=== PATIENT | female | born 1970 ===

== ENCOUNTER 2017-12-05 13:59 | Observation (INO) ==
--- NOTE | 2017-12-05 14:48 | ED ---
HPI General Chief Complaint: Overdose Stated Complaint: Psych Eval/VCSO Time Seen by Provider: 12/05/17 14:29 History of Present Illness HPI Narrative: Patient presents to the emergency department secondary to overdose. She states that she took an unknown amount of pills at approximately 1 hour prior to ER presentation. She advises that this was not intentional, but she has been having trouble sleeping secondary to depression and she does want to sleep. States in the past year her , she was diagnosed with thyroid cancer, and she lost her job. She denies SI, HI, or AV hallucinations. States she does have night terrors secondary to finding her in the bed date and she to give CPR. She reports nausea, shortness of breath, abdominal pain, intermittent chest pain at the present for months, but she denies lower extremity edema or vomiting. She took trazodone 50 mg, alprazolam 2 mg, and duloxetine 60 mg. Related Data Home Medications Medication Instructions Recorded Confirmed alprazolam 2 mg PO TID PRN 12/05/17 12/05/17 [id number]-mozzfielgxldv-atehzozm 1 tab PO Q4-6H PRN 12/05/17 12/05/17 [Excedrin Migraine] duloxetine 60 mg PO DAILY 12/05/17 12/05/17 trazodone 50 mg PO HS 12/05/17 12/05/17 Allergies Allergy/AdvReac Type Severity Reaction Status Date / Time Sulfa (Sulfonamide Allergy Hallucinati Verified 12/05/17 14:42 Antibiotics) ons Review of Systems ROS Unobtainable All other systems reviewed negative except as stated in HPI [facility] Medical History Medical History Anxiety (Acute) Depression (Acute) Kidney stone (Acute) Thyroid cancer (Acute) Social History Social History Substance History: No History of Abuse Second Hand Smoke Exposure: Yes Smoking Status: Current every day smoker Tobacco Type: Cigarettes How Often Do You Have a Drink Containing Alcohol: 2 to 4 times a month Recent Travel in [facility] within the Last 8 Weeks: No Recent Out of Country Travel within the Last 8 Weeks: No Immunization History Tetanus Immunization: <5 Years Hx Influenza Vaccine This Season: Yes Exam Narrative Exam Narrative: GENERAL: No acute distress. SKIN: Focused skin assessment warm/dry. HEAD: Atraumatic. Normocephalic. EYES: Pupils equal and round. No scleral icterus. No injection or drainage. ENT: No nasal bleeding or discharge. Mucous membranes pink and moist. NECK: Trachea midline. No JVD. CARDIOVASCULAR: Regular rate and rhythm. No murmur appreciated. RESPIRATORY: No accessory muscle use. Clear to auscultation. Breath sounds equal bilaterally. GASTROINTESTINAL: Abdomen soft, non-tender, nondistended. Hepatic and splenic margins not palpable. MUSCULOSKELETAL: No obvious deformities. No clubbing. No cyanosis. No edema. NEUROLOGICAL: Awake and alert. No obvious cranial nerve deficits. Motor grossly within normal limits. Normal speech. PSYCHIATRIC: Seems depressed. Course Initial Documented Vital Signs Temperature 98.2 F 12/05/17 14:27 Pulse Rate 81 12/05/17 14:27 Respiratory Rate 14 12/05/17 14:27 Blood Pressure 131/74 12/05/17 14:27 Pulse Oximetry 96 12/05/17 14:27 Last Documented Vital Signs Temperature 98.2 F 12/05/17 14:27 Pulse Rate 97 H 12/05/17 16:29 Respiratory Rate 14 12/05/17 16:29 Blood Pressure 98/58 L 12/05/17 16:29 Pulse Oximetry 98 12/05/17 16:29 Medical Decision Making MDM Narrative Medical decision making narrative: Patient presents to the emergency department secondary to overdose. She has been placed on a Dutta Act. Patient placed on electronic device monitor, continuous pulse ox, IV access obtained. Labs, poison control consult, and psychiatry screen ordered. The nurse counted the patient's medications and compared to when she got the field and the instruction she is missing 1 of trazodone, for the Loxitane, and 15 Xanax. Labs: Decreased TSH but normal free T4, decreased potassium, UA positive for blood and bacteria, and benzodiazepines. Poison Control: Get serial ecgs to check QT, monitor for 6 hrs when patient is at her baseline, if asymptomatic can d/c. Differential Diagnosis Differential Diagnosis: Drug overdose., site screen, poison control consult ordered. Lab Data Result diagrams: 12/05/17 15:00 12/05/17 15:00 Lab Results 12/05/17 12/05/17 12/05/17 Range/Units 15:00 15:00 15:00 WBC 8.7 (4.0-11.0) th/mm3 RBC 4.74 (4.00-5.30) mil/mm3 Hgb 14.7 (11.6-15.3) gm/dL Hct 43.7 (35.0-46.0) % MCV 92.3 (80.0-100.0) fL MCH 31.1 (27.0-34.0) pg MCHC 33.7 (32.0-36.0) % RDW 13.3 (11.6-17.2) % Plt Count 229 (150-450) th/mm3 MPV 9.5 (7.0-11.0) fL Prelim Diff (Auto) Slide review pending Neut % (Auto) 61.3 (16.0-70.0) % Lymph % (Auto) 29.1 (9.0-44.0) % Hyde % (Auto) 6.7 (0.0-8.0) % Eos % (Auto) 2.5 (0.0-4.0) % Baso % (Auto) 0.4 (0.0-2.0) % Neut # (Auto) 5.3 (1.8-7.7) th/mm3 Lymph # (Auto) 2.5 (1.0-4.8) th/mm3 Hyde # (Auto) 0.6 (0.0-0.9) th/mm3 Eos # (Auto) 0.2 (0.0-0.4) th/mm3 Baso # (Auto) 0.0 (0.0-0.2) th/mm3 WBC Differential . Diff Scan Auto diff confirmed Differential Comment . PT 10.3 (9.8-11.6) sec INR 1.0 Ratio APTT 24.3 (24.3-30.1) sec Sodium 145 (136-145) meq/L Potassium 3.4 L (3.5-5.1) meq/L Chloride 114 H (98-107) meq/L Carbon Dioxide 24.3 (21.0-32.0) meq/L Anion Gap 7 (5-15) meq/L BUN 15 (7-18) mg/dL Creatinine 0.58 (0.50-1.00) mg/dL Estimated GFR Greater than 89 (>89) mL/min Random Glucose 84 (74-106) mg/dL Calcium 7.7 L (8.5-10.1) mg/dL Total Bilirubin 0.4 (0.2-1.0) mg/dL AST 14 L (15-37) U/L ALT 35 (10-53) U/L Alkaline Phosphatase 65 (45-117) U/L Troponin I Less than 0.02 L (0.02-0.05) ng/mL Total Protein 6.4 (6.4-8.2) g/dL Albumin 3.3 L (3.4-5.0) g/dL TSH 0.067 L (0.358-3.740) uIU/mL Free T4 1.12 (0.76-1.46) ng/dL Urine Color (Yellw/Straw) Urine Clarity (Clear) Urine pH (5.0-8.5) Ur Specific [place] (1.002-1.035) Urine Protein (Neg-Trace) mg/dL Urine Glucose (UA) (Negative) mg/dL Urine Ketones (Negative) mg/dL Urine Occult Blood (Negative) Urine Nitrate (Negative) Urine Bilirubin (Negative) Urine Urobilinogen (Less than 2) mg/dL Ur Leukocyte Esterase (Negative) Urine RBC (0-3) /hpf Urine WBC (0-5) /hpf Ur Squamous Epith Cells (0-5) /hpf Urine Bacteria (None) /hpf Micro UA Comment Urine Culture Comments Salicylates (2.8-20.0) mg/dL Urine Opiates Screen (Neg) Acetaminophen Less than 2.0 L (10.0-30.0) mcg/mL Ur Barbiturates Screen (Neg) Ur Amphetamines Screen (Neg) U Benzodiazepines Scrn (Neg) Urine Cocaine Screen (Neg) U Cannabinoids Screen (Neg) Serum Alcohol Less than 3 (0-5) mg/dL 12/05/17 12/05/17 12/05/17 Range/Units 15:00 15:00 15:00 WBC (4.0-11.0) th/mm3 RBC (4.00-5.30) mil/mm3 Hgb (11.6-15.3) gm/dL Hct (35.0-46.0) % MCV (80.0-100.0) fL MCH (27.0-34.0) pg MCHC (32.0-36.0) % RDW (11.6-17.2) % Plt Count (150-450) th/mm3 MPV (7.0-11.0) fL Prelim Diff (Auto) Neut % (Auto) (16.0-70.0) % Lymph % (Auto) (9.0-44.0) % Hyde % (Auto) (0.0-8.0) % Eos % (Auto) (0.0-4.0) % Baso % (Auto) (0.0-2.0) % Neut # (Auto) (1.8-7.7) th/mm3 Lymph # (Auto) (1.0-4.8) th/mm3 Hyde # (Auto) (0.0-0.9) th/mm3 Eos # (Auto) (0.0-0.4) th/mm3 Baso # (Auto) (0.0-0.2) th/mm3 WBC Differential Diff Scan Differential Comment PT (9.8-11.6) sec INR Ratio APTT (24.3-30.1) sec Sodium (136-145) meq/L Potassium (3.5-5.1) meq/L Chloride (98-107) meq/L Carbon Dioxide (21.0-32.0) meq/L Anion Gap (5-15) meq/L BUN (7-18) mg/dL Creatinine (0.50-1.00) mg/dL Estimated GFR (>89) mL/min Random Glucose (74-106) mg/dL Calcium (8.5-10.1) mg/dL Total Bilirubin (0.2-1.0) mg/dL AST (15-37) U/L ALT (10-53) U/L Alkaline Phosphatase (45-117) U/L Troponin I (0.02-0.05) ng/mL Total Protein (6.4-8.2) g/dL Albumin (3.4-5.0) g/dL TSH Cancelled (0.358-3.740) uIU/mL Free T4 Cancelled (0.76-1.46) ng/dL Urine Color (Yellw/Straw) Urine Clarity (Clear) Urine pH (5.0-8.5) Ur Specific [place] (1.002-1.035) Urine Protein (Neg-Trace) mg/dL Urine Glucose (UA) (Negative) mg/dL Urine Ketones (Negative) mg/dL Urine Occult Blood (Negative) Urine Nitrate (Negative) Urine Bilirubin (Negative) Urine Urobilinogen (Less than 2) mg/dL Ur Leukocyte Esterase (Negative) Urine RBC (0-3) /hpf Urine WBC (0-5) /hpf Ur Squamous Epith Cells (0-5) /hpf Urine Bacteria (None) /hpf Micro UA Comment Urine Culture Comments Salicylates 3.4 (2.8-20.0) mg/dL Urine Opiates Screen (Neg) Acetaminophen (10.0-30.0) mcg/mL Ur Barbiturates Screen (Neg) Ur Amphetamines Screen (Neg) U Benzodiazepines Scrn (Neg) Urine Cocaine Screen (Neg) U Cannabinoids Screen (Neg) Serum Alcohol Cancelled (0-5) mg/dL 12/05/17 12/05/17 Range/Units 15:00 15:00 WBC (4.0-11.0) th/mm3 RBC (4.00-5.30) mil/mm3 Hgb (11.6-15.3) gm/dL Hct (35.0-46.0) % MCV (80.0-100.0) fL MCH (27.0-34.0) pg MCHC (32.0-36.0) % RDW (11.6-17.2) % Plt Count (150-450) th/mm3 MPV (7.0-11.0) fL Prelim Diff (Auto) Neut % (Auto) (16.0-70.0) % Lymph % (Auto) (9.0-44.0) % Hyde % (Auto) (0.0-8.0) % Eos % (Auto) (0.0-4.0) % Baso % (Auto) (0.0-2.0) % Neut # (Auto) (1.8-7.7) th/mm3 Lymph # (Auto) (1.0-4.8) th/mm3 Hyde # (Auto) (0.0-0.9) th/mm3 Eos # (Auto) (0.0-0.4) th/mm3 Baso # (Auto) (0.0-0.2) th/mm3 WBC Differential Diff Scan Differential Comment PT (9.8-11.6) sec INR Ratio APTT (24.3-30.1) sec Sodium (136-145) meq/L Potassium (3.5-5.1) meq/L Chloride (98-107) meq/L Carbon Dioxide (21.0-32.0) meq/L Anion Gap (5-15) meq/L BUN (7-18) mg/dL Creatinine (0.50-1.00) mg/dL Estimated GFR (>89) mL/min Random Glucose (74-106) mg/dL Calcium (8.5-10.1) mg/dL Total Bilirubin (0.2-1.0) mg/dL AST (15-37) U/L ALT (10-53) U/L Alkaline Phosphatase (45-117) U/L Troponin I (0.02-0.05) ng/mL Total Protein (6.4-8.2) g/dL Albumin (3.4-5.0) g/dL TSH (0.358-3.740) uIU/mL Free T4 (0.76-1.46) ng/dL Urine Color Straw (Yellw/Straw) Urine Clarity Clear (Clear) Urine pH 5.0 (5.0-8.5) Ur Specific [place] 1.004 (1.002-1.035) Urine Protein Negative (Neg-Trace) mg/dL Urine Glucose (UA) Negative (Negative) mg/dL Urine Ketones Negative (Negative) mg/dL Urine Occult Blood Small H (Negative) Urine Nitrate Negative (Negative) Urine Bilirubin Negative (Negative) Urine Urobilinogen Less than 2 (Less than 2) mg/dL Ur Leukocyte Esterase Negative (Negative) Urine RBC 1 (0-3) /hpf Urine WBC 3 (0-5) /hpf Ur Squamous Epith Cells <1 (0-5) /hpf Urine Bacteria Few H (None) /hpf Micro UA Comment Culture not ind Urine Culture Comments Culture not ind Salicylates (2.8-20.0) mg/dL Urine Opiates Screen Neg (Neg) Acetaminophen (10.0-30.0) mcg/mL Ur Barbiturates Screen Neg (Neg) Ur Amphetamines Screen Neg (Neg) U Benzodiazepines Scrn Pos H (Neg) Urine Cocaine Screen Neg (Neg) U Cannabinoids Screen Neg (Neg) Serum Alcohol (0-5) mg/dL ECG Data Attestation: I personally reviewed and interpreted this ECG as follows: (Sinus rhythm, rate 76, normal axis, QTC 425, normal intervals, T-wave inversion in V1 and V2) Discharge Plan Discharge Disposition Patient Disposition: 30 Still Patient Discharge Condition Condition: Stable Discharge Details Diagnosis: Drug overdose Physicians Team ED Provider: Ashley Frank Primary Care Provider: Primary Care Cristina Mcdonough Rxs /Orders / Referrals /Forms Prescriptions: No Action trazodone 50 mg Tablet 50 mg PO HS RF: 0 alprazolam 2 mg Tablet 2 mg PO TID PRN (Reason: Anxiety) RF: 0 lyzddsc-mnizxqzvrmxpd-aujvfepd [Excedrin Migraine] 250-250-65 mg Tablet 1 tab PO Q4-6H PRN (Reason: Headache) RF: 0 duloxetine 60 mg Capsule,Delayed Release(Dr/Ec) 60 mg PO DAILY RF: 0 Discharge Interventions Interventions: Vital Signs Last Done: 12/05/17 16:29 Status ED Status: With Doctor
[2017-12-05 15:15] LABS: Baso % (Auto) 0.4 % (0.0-2.0); Eos # (Auto) 0.2 th/mm3 (0.0-0.4); Eos % (Auto) 2.5 % (0.0-4.0); Hematocrit 43.7 % (35.0-46.0); Hemoglobin 14.7 gm/dL (11.6-15.3); Lymph # (Auto) 2.5 th/mm3 (1.0-4.8); Lymph % (Auto) 29.1 % (9.0-44.0); Mean Corpuscular HGB Conc 33.7 % (32.0-36.0); Mean Corpuscular Hemoglobin 31.1 pg (27.0-34.0); Mean Corpuscular Volume 92.3 fL (80.0-100.0); Mean Platelet Volume 9.5 fL (7.0-11.0); Mono # (Auto) 0.6 th/mm3 (0.0-0.9); Mono % (Auto) 6.7 % (0.0-8.0); Neut # (Auto) 5.3 th/mm3 (1.8-7.7); Neut % (Auto) 61.3 % (16.0-70.0); Platelet Count 229 th/mm3 (150-450); Red Blood Count 4.74 mil/mm3 (4.00-5.30); Red Cell Distribution Width 13.3 % (11.6-17.2); White Blood Count 8.7 th/mm3 (4.0-11.0)
[2017-12-05 15:28] LABS: Amphetamine Screen,Urine Neg (Neg); Barbiturate Screen,Urine Neg (Neg); Cannabinoid Screen,Urine Neg (Neg); Cocaine Screen,Urine Neg (Neg)
[2017-12-05 15:31] LABS: Bacteria,Urine Few /hpf; Bilirubin,Urine Negative (Negative); Clarity,Urine Clear (Clear); Color,Urine Straw (Yellw/Straw); Glucose,Urine (UA) Negative (Negative); Leukocyte Esterase,Urine Negative (Negative); Nitrite,Urine Negative (Negative); Opiate Screen,Urine Neg (Neg); Specific Gravity,Urine 1.004 (1.002-1.035); Squamous Epithelial Cell,Urine <1 /hpf (0-5)
[2017-12-05 15:35] LABS: Activated Partial Thrombo Time 24.3 sec (24.3-30.1); Prothrombin Time 10.3 sec (9.8-11.6)
[2017-12-05 15:41] VITALS: TEMP 98.2
[2017-12-05 15:47] LABS: Albumin 3.3 g/dL (3.4-5.0); Anion Gap 7 meq/L (5-15); Aspartate Aminotransferase 14 U/L (15-37); Blood Urea Nitrogen 15 mg/dL (7-18); Calcium 7.7 mg/dL (8.5-10.1); Carbon Dioxide 24.3 meq/L (21.0-32.0); Chloride 114 meq/L (98-107); Glomerular Filtration Rate Greater Than 89 mL/min (>89); Glucose,Random 84 mg/dL (74-106); Potassium 3.4 meq/L (3.5-5.1); Sodium 145 meq/L (136-145)
[2017-12-05 15:58] LABS: Alanine Aminotransferase 35 U/L (10-53); Alkaline Phosphatase 65 U/L (45-117); Free T4 (Free Thyroxine) 1.12 ng/dL (0.76-1.46); Thyroid Stimulating Hormone 0.067 uIU/mL (0.358-3.740); Total Protein 6.4 g/dL (6.4-8.2)
[2017-12-05] MEDS ORDERED: Bisacodyl 10 MG Supp RECTAL PRN (17:02)
--- NOTE | 2017-12-05 17:32 | P.HPIM ---
History of Present Illness Primary Care Physician: No Primary Care Physician History of Present Illness: 47-year-old female with a history of anxiety, depression, thyroid cancer status post thyroidectomy, who presents with what she reports as an unintentional drug overdose. She reports that she has been unable to sleep for several days, and today "in a moment of weakness," took a handful of pills. She reports feeling very tired. Denies any chest pain shortness of breath. Denies nausea or vomiting. Denies any recent fevers, chills. She previously went to [facility] several weeks ago with chest pain and ruled out. Denies any chest pain currently.. 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 By: Brewing Technician / EMT - Medical History Medical History: Medical History (Last Updated 12/05/17 @ 17:31 by Ab Rivero MD) Anxiety Depression H/O thyroidectomy Kidney stone Thyroid cancer - Surgical History Surgical History: Surgical History (Last Updated 12/05/17 @ 17:31 by Ab Rivero MD) H/O right knee surgery History of partial hysterectomy - Family History Family History: Family History (Last Updated 12/05/17 @ 17:31 by Ab Rivero MD) Father Heart valve disease Other Family history of prostate cancer in father Multiple sclerosis - Tobacco History Second Hand Smoke Exposure: Yes Tobacco Use In Past 30 Days: Yes Smoking Status: Current every day smoker Tobacco Type: Cigarettes - Alcohol History How Often Do You Have a Drink Containing Alcohol: 2 to 4 times a month - Substance Use History Substance History: No History of Abuse - Travel History Recent Travel in the [place] Within the Last 8 Weeks: No Recent Travel Out of the Country Within the Last 8 Weeks: No - Immunization History Tetanus Immunization: <5 Years Hx Influenza Vaccine This Season: Yes Medications and Allergies Active Medications: Active Medications Al Hydroxide/Mg Hydroxide (Milk Of Magnesia Liq) 30 ml PO Q12H PRN PRN Reason: Mild Constipation Bisacodyl (Dulcolax Supp) 10 mg RECTAL DAILY PRN PRN Reason: SEVERE CONSITIPATION Sodium Chloride (Ns Inj) 1,000 mls @ 100 mls/hr IV.CONT .Q10H ROBBIN Lactulose (Lactulose Liq) 30 ml PO DAILY PRN PRN Reason: SEVERE CONSITIPATION Senna/Docusate Sodium (Kristen-Colace) 1 tab PO BID ROBBIN Sennosides (Senokot) 17.2 mg PO Q12H PRN PRN Reason: Moderate Constipation Allergies Allergy/AdvReac Type Severity Reaction Status Date / Time Sulfa (Sulfonamide Allergy Hallucinati Verified 12/05/17 14:42 Antibiotics) ons Home Medications Medication Instructions Recorded Confirmed Type alprazolam 2 mg PO TID PRN 12/05/17 12/05/17 History bxnipuf-raezdoskjsqdd-dggpohwj 1 tab PO Q4-6H PRN 12/05/17 12/05/17 History [Excedrin Migraine] duloxetine 60 mg PO DAILY 12/05/17 12/05/17 History trazodone 50 mg PO HS 12/05/17 12/05/17 History Exam Vital signs: Vital Signs 12/05/17 14:27 12/05/17 15:15 12/05/17 16:25 Temperature 98.2 F Pulse Rate 81 73 76 Respiratory Rate 14 16 14 Blood Pressure 131/74 131/74 87/46 L Pulse Oximetry 96 100 96 12/05/17 16:29 12/05/17 17:11 Temperature Pulse Rate 97 H 84 Respiratory Rate 14 12 Blood Pressure 98/58 L 111/58 L Pulse Oximetry 98 99 Intake & Output 12/04/17 12/05/17 12/05/17 18:59 06:59 18:59 Weight 70.76 kg Narrative: GENERAL: Patient lying in bed sleeping. Wakes up for exam. Somnolent, but oriented 3. SKIN: Warm and dry. HEAD: Atraumatic. Normocephalic. EYES: Pupils equal and round. No scleral icterus. No injection or drainage. ENT: No nasal bleeding or discharge. Mucous membranes pink and moist. NECK: Trachea midline. No JVD. CARDIOVASCULAR: Regular rate and rhythm. RESPIRATORY: No accessory muscle use. Clear to auscultation. Breath sounds equal bilaterally. GASTROINTESTINAL: Abdomen soft, non-tender, nondistended. Hepatic and splenic margins not palpable. MUSCULOSKELETAL: Extremities without clubbing, cyanosis, or edema. No obvious deformities. NEUROLOGICAL: Awake and alert. No obvious cranial nerve deficits. Motor grossly within normal limits. Five out of 5 muscle strength in the arms and legs. Normal speech. PSYCHIATRIC: Appropriate mood and affect; insight and judgment normal. Results - Labs CBC & Chem 7: 12/05/17 15:00 12/05/17 15:00 Labs: Short CBC 12/05/17 Range/Units 15:00 WBC 8.7 (4.0-11.0) th/mm3 Hgb 14.7 (11.6-15.3) gm/dL Hct 43.7 (35.0-46.0) % Plt Count 229 (150-450) th/mm3 BMP 12/05/17 15:00 Sodium 145 Potassium 3.4 L Chloride 114 H Carbon Dioxide 24.3 BUN 15 Creatinine 0.58 Calcium 7.7 L Cardiac Enzymes 12/05/17 Range/Units 15:00 Troponin I Less than 0.02 L (0.02-0.05) ng/mL Liver Function 12/05/17 Range/Units 15:00 Total Bilirubin 0.4 (0.2-1.0) mg/dL AST 14 L (15-37) U/L ALT 35 (10-53) U/L Alkaline Phosphatase 65 (45-117) U/L Albumin 3.3 L (3.4-5.0) g/dL Urine 12/05/17 Range/Units 15:00 Urine Color Straw (Yellw/Straw) Urine Clarity Clear (Clear) Urine pH 5.0 (5.0-8.5) Ur Specific [place] 1.004 (1.002-1.035) Urine Protein Negative (Neg-Trace) mg/dL Urine Glucose (UA) Negative (Negative) mg/dL Caprini VTE Risk Assessment Caprini VTE Risk Assessment: No/Low Risk (score <= 1) Caprini Risk Assessment Model: Point Value = 1 Point Value = 2 Point Value = 3 Point Value = 5 Age 41-60 Minor surgery BMI > 25 kg/m2 Swollen legs Varicose veins or History of unexplained or recurrent spontaneous Oral contraceptives or hormone replacement Sepsis (< 1 month) Serious lung disease, including pneumonia (< 1 month) Abnormal pulmonary function Acute myocardial infarction Congestive heart failure (< 1 month) History of inflammatory bowel disease Medical patient at bed rest Age 61-74 Arthroscopic surgery Major open surgery (> 45 min) Laparoscopic surgery (> 45 min) Malignancy Confined to bed (> 72 hours) Immobilizing plaster cast Central venous access Age >= 75 History of VTE Family history of VTE Factor V Leiden Prothrombin [id number] Lupus anticoagulant Anticardiolipin antibodies Elevated serum homocysteine Heparin-induced thrombocytopenia Other congenital or acquired thrombophilia Stroke (< 1 month) Elective arthroplasty Hip, pelvis, or leg fracture Acute spinal cord injury (< 1 month) Prophylaxis Regimen: Total Risk Factor Score Risk Level Prophylaxis Regimen 0-1 Low Early ambulation 2 Moderate Order ONE of the following: *Sequential Compression Device (SCD) *Heparin 5000 units SQ BID 3-4 Higher Order ONE of the following medications: *Heparin 5000 units SQ TID *Enoxaparin/Lovenox 40 mg SQ daily (WT < 150 kg, CrCl > 30 mL/min) *Enoxaparin/Lovenox 30 mg SQ daily (WT < 150 kg, CrCl > 10-29 mL/min) *Enoxaparin/Lovenox 30 mg SQ BID (WT < 150 kg, CrCl > 30 mL/min) AND/OR *Sequential Compression Device (SCD) 5 or more Highest Order ONE of the following medications: *Heparin 5000 units SQ TID (Preferred with Epidurals) *Enoxaparin/Lovenox 40 mg SQ daily (WT < 150 kg, CrCl > 30 mL/min) *Enoxaparin/Lovenox 30 mg SQ daily (WT < 150 kg, CrCl > 10-29 mL/min) *Enoxaparin/Lovenox 30 mg SQ BID (WT < 150 kg, CrCl > 30 mL/min) AND *Sequential Compression Device (SCD) Assessment and Plan - Plan //Intentional overdose Anxiety Depression Patient says this was unintentional, however did say it was "in a moment weakness" EKG with no acute findings. Will trend. ED physician has discussed with poison control. Patient is Dutta acted. Consult psychiatry //Thyroid cancer status post resection //Hyperthyroid state -Patient states she is on triiodothyronine, as well as levothyroxine. -Due to decreased TSH, we will hold off on these medications for now. Given that she has not slept in 5 days, ended up overdosing on meds to try to sleep, probably can go on just T4 without the T3. Continue to monitor closely. -Follow with endocrinology as outpatient. //Tobacco abuse. Cessation counseling provided. //Hypokalemia. 3.4. Mild. Replace. Discussed Condition With: Patient, ED physician.
[2017-12-05] MEDS: Sod Chloride 0.9% Inj 1,000 ML IV.CONT SCH (17:56)
[2017-12-05] MEDS: Senna/Docusate Sodium 8.6/50 MG Tablet PO SCH (21:11)
[2017-12-06] MEDS: Sod Chloride 0.9% Inj 1,000 ML IV.CONT SCH ×2 (09:47→13:29)
[2017-12-06] MEDS: Senna/Docusate Sodium 8.6/50 MG Tablet PO SCH (09:52)
--- NOTE | 2017-12-06 09:55 | P.PN ---
Subjective Interval history: Follow up for overdose. The patient reports feeling back to herself, wants to go home. She denies any headache, lightheadedness, dizziness, chest pain, palpitations, or abdominal complaints. She denies any suicidal ideations. She states she took trazodone and Xanax in an attempt to go to sleep. She states she has been dealing with a lot of stressors at home. She has no other medical complaints at this time. Physical Exam Vital signs: Vital Signs 12/05/17 14:27 12/05/17 15:15 12/05/17 16:25 Temperature 98.2 F Pulse Rate 81 73 76 Respiratory Rate 14 16 14 Blood Pressure 131/74 131/74 87/46 L Pulse Oximetry 96 100 96 12/05/17 16:29 12/05/17 17:11 12/05/17 18:34 Temperature Pulse Rate 97 H 84 75 Respiratory Rate 14 12 16 Blood Pressure 98/58 L 111/58 L 115/68 Pulse Oximetry 98 99 100 12/05/17 20:00 12/06/17 00:00 12/06/17 03:27 Temperature 98.6 F 98.4 F 98.4 F Pulse Rate 79 67 72 Respiratory Rate 17 17 17 Blood Pressure 91/55 L 102/60 102/58 L Pulse Oximetry 95 95 95 12/06/17 08:00 Temperature 97.9 F Pulse Rate 81 Respiratory Rate 16 Blood Pressure 106/63 Pulse Oximetry 96 Intake & Output 12/05/17 12/06/17 12/06/17 18:59 06:59 18:59 Intake Total 1000 / 1000 Balance 1000 / 1000 Weight 70.76 kg Intake: IV 1000 / 1000 NS Inj 1,000 ML @ 100 mls/hr IV 1000 / 1000 .CONT .Q10H [facility] Rx#:[id number] Narrative: GENERAL: Well-nourished, well-developed middle-aged female patient in [facility]. SKIN: Warm and dry. No rash. HEENT: Normocephalic. Atraumatic. Pupils equal and round. Mucous membranes pink and moist. CARDIOVASCULAR: Regular rate and rhythm. No murmur appreciated. RESPIRATORY: No accessory muscle use. Clear to auscultation. Breath sounds equal bilaterally. GASTROINTESTINAL: Abdomen soft, non-tender, nondistended. Normoactive bowel sounds x4. MUSCULOSKELETAL: No obvious deformities. Extremities without clubbing, cyanosis , or edema. NEUROLOGICAL: Awake and alert. No obvious cranial nerve deficits. Motor grossly within normal limits. Moving all extremities spontaneously. Normal speech. PSYCHIATRIC: Appropriate mood and affect; insight and judgment normal. Results - Labs CBC & Chem 7: 12/05/17 15:00 12/05/17 15:00 Laboratory Results - last 24 hr 12/05/17 12/05/17 12/05/17 15:00 15:00 15:00 WBC 8.7 RBC 4.74 Hgb 14.7 Hct 43.7 MCV 92.3 MCH 31.1 MCHC 33.7 RDW 13.3 Plt Count 229 MPV 9.5 Prelim Diff (Auto) Slide review pending Neut % (Auto) 61.3 Lymph % (Auto) 29.1 [place] % (Auto) 6.7 Eos % (Auto) 2.5 Baso % (Auto) 0.4 Neut # (Auto) 5.3 Lymph # (Auto) 2.5 [place] # (Auto) 0.6 Eos # (Auto) 0.2 Baso # (Auto) 0.0 WBC Differential . Diff Scan Auto diff confirmed Differential Comment . PT 10.3 INR 1.0 APTT 24.3 Sodium 145 Potassium 3.4 L Chloride 114 H Carbon Dioxide 24.3 Anion Gap 7 BUN 15 Creatinine 0.58 Estimated GFR Greater than 89 Random Glucose 84 Calcium 7.7 L Total Bilirubin 0.4 AST 14 L ALT 35 Alkaline Phosphatase 65 Troponin I Less than 0.02 L Total Protein 6.4 Albumin 3.3 L TSH 0.067 L Free T4 1.12 Urine Color Urine Clarity Urine pH Ur Specific [place] Urine Protein Urine Glucose (UA) Urine Ketones Urine Occult Blood Urine Nitrate Urine Bilirubin Urine Urobilinogen Ur Leukocyte Esterase Urine RBC Urine WBC Ur Squamous Epith Cells Urine Bacteria Micro UA Comment Urine Culture Comments Salicylates Urine Opiates Screen Acetaminophen Less than 2.0 L Ur Barbiturates Screen Ur Amphetamines Screen U Benzodiazepines Scrn Urine Cocaine Screen U Cannabinoids Screen Serum Alcohol Less than 3 12/05/17 12/05/17 12/05/17 15:00 15:00 15:00 WBC RBC Hgb Hct MCV MCH MCHC RDW Plt Count MPV Prelim Diff (Auto) Neut % (Auto) Lymph % (Auto) [place] % (Auto) Eos % (Auto) Baso % (Auto) Neut # (Auto) Lymph # (Auto) [place] # (Auto) Eos # (Auto) Baso # (Auto) WBC Differential Diff Scan Differential Comment PT INR APTT Sodium Potassium Chloride Carbon Dioxide Anion Gap BUN Creatinine Estimated GFR Random Glucose Calcium Total Bilirubin AST ALT Alkaline Phosphatase Troponin I Total Protein Albumin TSH Cancelled Free T4 Cancelled Urine Color Urine Clarity Urine pH Ur Specific [place] Urine Protein Urine Glucose (UA) Urine Ketones Urine Occult Blood Urine Nitrate Urine Bilirubin Urine Urobilinogen Ur Leukocyte Esterase Urine RBC Urine WBC Ur Squamous Epith Cells Urine Bacteria Micro UA Comment Urine Culture Comments Salicylates 3.4 Urine Opiates Screen Acetaminophen Ur Barbiturates Screen Ur Amphetamines Screen U Benzodiazepines Scrn Urine Cocaine Screen U Cannabinoids Screen Serum Alcohol Cancelled 12/05/17 12/05/17 15:00 15:00 WBC RBC Hgb Hct MCV MCH MCHC RDW Plt Count MPV Prelim Diff (Auto) Neut % (Auto) Lymph % (Auto) [place] % (Auto) Eos % (Auto) Baso % (Auto) Neut # (Auto) Lymph # (Auto) [place] # (Auto) Eos # (Auto) Baso # (Auto) WBC Differential Diff Scan Differential Comment PT INR APTT Sodium Potassium Chloride Carbon Dioxide Anion Gap BUN Creatinine Estimated GFR Random Glucose Calcium Total Bilirubin AST ALT Alkaline Phosphatase Troponin I Total Protein Albumin TSH Free T4 Urine Color Straw Urine Clarity Clear Urine pH 5.0 Ur Specific [place] 1.004 Urine Protein Negative Urine Glucose (UA) Negative Urine Ketones Negative Urine Occult Blood Small H Urine Nitrate Negative Urine Bilirubin Negative Urine Urobilinogen Less than 2 Ur Leukocyte Esterase Negative Urine RBC 1 Urine WBC 3 Ur Squamous Epith Cells <1 Urine Bacteria Few H Micro UA Comment Culture not ind Urine Culture Comments Culture not ind Salicylates Urine Opiates Screen Neg Acetaminophen Ur Barbiturates Screen Neg Ur Amphetamines Screen Neg U Benzodiazepines Scrn Pos H Urine Cocaine Screen Neg U Cannabinoids Screen Neg Serum Alcohol Assessment and Plan - Plan 47-year-old female with a history of anxiety, depression, thyroid cancer status post thyroidectomy, who presents with what she reports as an unintentional drug overdose. Overdose: with hx of Anxiety/Depression. Unclear motivation of overdose, patient took handful of pills to "go to sleep" in a "moment of weakness". -Trended EKGs with no acute findings. -ED physician has discussed with poison control. Patient was Dutta acted in the ED. -Consulted psychiatry -Medically stable Thyroid cancer status post resection with Hyperthyroid state -Patient states she is on triiodothyronine, as well as levothyroxine. -Due to decreased TSH, held off on these medications; however patient very reluctant to change any medications at this time, states she follows with endocrinology office Dr. Vinson and Skyla Lester PA-C very closely, and she will follow up with them for any medication adjustments. -Follow with endocrinology as outpatient, patient verbalized understanding Tobacco abuse. Cessation counseling provided. Hypokalemia. 3.4. Mild. Replaced. Discharge Planning: Discharge pending psychiatry evaluation. The patient is medically stable for discharge. Discussed with Dr. Lei, recommends admission to inpatient psychiatry. Discharge patient to inpatient psychiatry unit Condition on discharge: Stable Regular Diet as tolerated Ad Luz Maria activity Rx written: no new meds Follow-up with primary care physician within 1 week
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
[2017-12-06] MEDS ORDERED: LEVOTHYROXINE 100 MCG PO SCH (15:00)
[2017-12-06 22:35] VITALS: BP 122/80; PULSE 76; RESP 16; O2SAT 100
--- NOTE | 2017-12-06 23:03 | ECG ---
Date Performed: 12/06/2017 Time Performed: 09:43:03 PTAGE: 47 years EKG: SINUS BRADYCARDIA MINIMAL ST ELEVATION IN INFERIOR LEADS, POSSIBLE EARLY REPOLARIZATION BOR DERLINE ECG PREVIOUS TRACING : 12/05/2017 17.51 Since the previous tracing, no significant change noted DOCTOR: Berto Lopez Interpretating Date/Time 12/06/2017 23:02:50
--- NOTE | 2017-12-06 23:29 | ECG ---
Date Performed: 12/05/2017 Time Performed: 17:51:35 PTAGE: 47 years EKG: Sinus rhythm POSSIBLE LEFT ATRIAL ENLARGEMENT BORDERLINE ECG INTERPRETATION BASED ON A DEFAULT AGE OF 39 YEARS PREVIOUS TRACING : 12/05/2017 14.55 Since the previous tracing, no significant change not ed DOCTOR: Berto Lopez Interpretating Date/Time 12/06/2017 23:27:55
--- NOTE | 2017-12-06 23:33 | ECG ---
Date Performed: 12/05/2017 Time Performed: 14:55:59 PTAGE: 47 years EKG: Sinus rhythm NORMAL ECG NO PREVIOUS TRACING DOCTOR: Berto Lopez Interpretating Date/Time 12/07/2017 06:44:05
== END 2017-12-06 18:32 ==
LOC: NEDA 13:59 → NEPFCDU 13:59 → NEPE 13:59 → NEPFCDU 18:40
PROVIDERS: ADMIT Hospitalist; ATTEND Hospitalist
DX: F32.9 Major depressive disorder, single episode, unspecified; F41.9 Anxiety disorder, unspecified; F51.4 Sleep terrors [night terrors]; F43.25 Adjustment disorder with mixed disturbance of emotions and conduct; F51.5 Nightmare disorder; T50.901A Poisoning by unspecified drugs, medicaments and biological substances, accidental (unintentional), initial encounter; F17.210 Nicotine dependence, cigarettes, uncomplicated; E89.0 Postprocedural hypothyroidism; E87.6 Hypokalemia; Z85.850 Personal history of malignant neoplasm of thyroid

== ENCOUNTER 2017-12-06 18:42 | Inpatient (IN) ==
[2017-12-06] MEDS ORDERED: Acetaminophen 325 MG Tablet PO PRN (19:56)
[2017-12-06] MEDS ORDERED: Aluminum/Magnesium/Simethacone Susp 30 ML UDC PO PRN (19:56)
[2017-12-06 21:10] LABS: Calcium 8.8 mg/dL (8.5-10.1); Carbon Dioxide 27.2 meq/L (21.0-32.0); Potassium 3.8 meq/L (3.5-5.1)
[2017-12-06 21:14] LABS: Chol/HDL Ratio 3.64 Ratio; HDL Cholesterol 54.6 mg/dL (40.0-60.0)
[2017-12-07] MEDS ORDERED: LORazepam 1 MG Tablet PO PRN (08:21)
[2017-12-07] MEDS: Liothyronine 5 MCG Tablet PO SCH (08:38)
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
[2017-12-07] MEDS ORDERED: traZODone 50 MG Tablet PO PRN (10:44)
[2017-12-07] MEDS: Duloxetine 60 MG DR Capsule PO SCH (12:05)
--- NOTE | 2017-12-07 12:23 | P.CONPSY ---
Provisional Diagnosis Admission Date: December 06, 2017 18:42 [place] I.: 1. Adjustment disorder with disturbance of emotions and conduct 2. Suspect component of posttraumatic stress disorder [place] II.: 1. Some cluster B personality traits History of Present Illness Service: Psychiatry Consult date: 12/07/17 Requesting Physician: Nico Lei Reason for Consult: Second opinion petition [facility] Primary Care Provider: UNKNOWN History of Present Illness: Patient is a 47-year-old white female came to the emergency department under Dutta act with an overdose of benzodiazepines admitted to the medical service seen in consultation there by Dr. Lei patient medically cleared and transferred to this unit under Dr. Lei service. Dr. Lei assigned first opinion petition supporting Dutta act. Patient seen by me with nurse Aster. Patient is calm to somewhat anxious depressed tearful irritable and labile. She minimizes her overdose. Saying now she just wants to go home to her family. Over the stomach feel there is still a need for further observation and assessment. There is documentation that the family members feel she may be misusing her benzodiazepines on a more chronic basis. Thus at the stomach feel patient does meet criteria for continued inpatient observation on an involuntary basis per the Dutta act thus I will cosign second opinion petition supporting Dutta act Review of Systems All other systems reviewed negative except as stated in HPI PMFSH - History History Provided By: Regulatory Lead / EMT - Medical History Medical History: Medical History (Last Reviewed 12/06/17 @ 18:27 by Ann-Marie Whitney) Anxiety Depression H/O thyroidectomy Kidney stone Thyroid cancer - Surgical History Surgical History: Surgical History (Last Updated 12/05/17 @ 17:31 by Ab Rivero MD) H/O right knee surgery History of partial hysterectomy - Family History Family History: Family History (Last Updated 12/05/17 @ 17:31 by Ab Rivero MD) Father Heart valve disease Other Family history of prostate cancer in father Multiple sclerosis Medications and Allergies Active Medications: Active Medications Acetaminophen (Tylenol) 650 mg PO Q4H PRN PRN Reason: Pain 1-5 or Temp >101F Al Hydrox/Mg Hydrox/Simethicone (Mag-Al Plus Susp Liq) 30 ml PO Q6H PRN PRN Reason: DYSPEPSIA Al Hydroxide/Mg Hydroxide (Milk Of Magnesia Liq) 30 ml PO DAILY PRN PRN Reason: CONSTIPATION Alprazolam (Xanax) 2 mg PO Q8H PRN PRN Reason: ANXIETY Diphenhydramine HCl (Benadryl) 50 mg PO HS PRN PRN Reason: INSOMNIA Duloxetine HCl (Cymbalta) 60 mg PO DAILY [facility] Last Admin: 12/07/17 12:05 Dose: 60 mg Flumazenil (Romazecon Inj) 0.2 mg IV.PUSH Q1M PRN PRN Reason: OVERSEDATION Levothyroxine Sodium (Synthroid) 100 mcg PO DAILY@06 [facility] Liothyronine Sodium (Cytomel) 10 mcg PO DAILY@06 [facility] Last Admin: 12/07/17 08:38 Dose: 10 mcg Lorazepam (Ativan) 1 mg PO Q4H PRN PRN Reason: for CIWA 8-10 Lorazepam (Ativan) 2 mg PO Q2H PRN PRN Reason: for CIWA 11-14 Lorazepam (Ativan Inj) 2 mg IV.PUSH Q2H PRN PRN Reason: for CIWA 11-14 Lorazepam (Ativan Inj) 2 mg IV.PUSH Q1H PRN PRN Reason: for CIWA 15-20 Lorazepam (Ativan Inj) 2 mg IV.PUSH Q15M PRN PRN Reason: for CIWA > 20 Lorazepam (Ativan Inj) 1 mg IV.PUSH Q4H PRN PRN Reason: for CIWA 8-10 Nicotine (Habitrol 21 Mg Patch.24 Hr) 1 patch T-DERMAL DAILY PRN PRN Reason: NICOTINE CRAVING Patch Removal (Remove Old Patch) 1 each T-DERMAL HS [facility] Last Admin: 12/06/17 21:20 Dose: Not Given Trazodone HCl (Desyrel) 50 mg PO HS PRN PRN Reason: INSOMNIA Allergies Allergy/AdvReac Type Severity Reaction Status Date / Time Sulfa (Sulfonamide Allergy Hallucinati Verified 12/05/17 14:42 Antibiotics) ons Home Medications Medication Instructions Recorded Confirmed Type pffuuyh-bvjjejkylsjfq-fqldpqsq 1 tab PO Q4-6H PRN 12/05/17 12/05/17 History [Excedrin Migraine] duloxetine 60 mg PO DAILY 12/05/17 12/05/17 History levothyroxine [Tirosint] 100 mcg PO DAILY 12/06/17 12/06/17 History liothyronine [Cytomel] 10 mcg PO DAILY 12/06/17 12/06/17 History Exam Vital signs: Vital Signs 12/06/17 19:18 12/07/17 05:51 Temperature 98.1 F 98.3 F Pulse Rate 68 76 Respiratory Rate 16 21 Blood Pressure 133/76 144/71 H Pulse Oximetry 98 95 Intake & Output 12/06/17 12/07/17 12/07/17 18:59 06:59 18:59 Weight 73.7 kg Other: Weight On Admission 73.7 kg Mental Status Examination Appearance: Appropriate Consciousness: Alert Orientation: x4 Motor Activity: Normal gait Speech: Unremarkable Language: Adequate Fund of Knowledge: Adequate Attention and Concentration: Adequate Memory: Unremarkable (Grossly intact on clinical exam) Mood: Other (Dysphoric) Affect: Blunt Thought Process & Associations: Intact Thought Content: Appropriate Hallucination Type: None Delusion Type: None Suicidal Ideation: No (Unclear whether patient is reliable to contract for safety) Suicidal Plan: No Suicidal Intention: No Homicidal Ideation: No Homicidal Plan: No Homicidal Intention: No Insight: Poor Judgment: Impulsive Assessment and Plan - Assessment (1) Adjustment disorder with mixed disturbance of emotions and conduct Code(s): F43.25 - Adjustment disorder with mixed disturbance of emotions and conduct Status: Acute - Plan Plan: At this time patient continues to meet criteria for involuntary psychiatric hospitalization of the Dutta act. Less I will cosign second opinion petition supporting Dutta act Justification for Continued Inpatient Stay: At this time patient may decompensate a place to a lower level of care Discharge Planning: Probable return home with family Request Healthcare Surrogate/Guardian Advocate?: No
[2017-12-07 12:28] LABS: Anion Gap 9 meq/L (5-15); Blood Urea Nitrogen 13 mg/dL (7-18); Calcium 9.1 mg/dL (8.5-10.1); Carbon Dioxide 27.8 meq/L (21.0-32.0); Chloride 106 meq/L (98-107); Glomerular Filtration Rate Greater Than 89 mL/min (>89); Glucose,Random 104 mg/dL (74-106); Potassium 3.6 meq/L (3.5-5.1); Sodium 143 meq/L (136-145)
[2017-12-07 12:29] LABS: Cholesterol 207 mg/dL (120-200); Triglycerides 135 mg/dL (42-150)
[2017-12-07 12:31] LABS: Chol/HDL Ratio 3.79 Ratio; HDL Cholesterol 54.6 mg/dL (40.0-60.0); LDL Cholesterol,Calculated 125 mg/dL (0-99)
--- NOTE | 2017-12-07 14:33 | P.CON ---
History of Present Illness Service: [facility] Consult date: 12/06/17 Requesting Physician: Nico Lei Reason for Consult: Continue follow-up from CDU Primary Care Provider: UNKNOWN Chief Complaint: "I feel like crap" History of Present Illness: 47-year-old female with past medical history significant for anxiety, depression , thyroid cancer status post thyroidectomy, and kidney stones who presented to [place] department on 12/05 after an intentional drug overdose with a handful of pills. Patient had apparently been having trouble sleeping and in "moment of weakness" took a handful of pills because of this. She was admitted to the CDU and EKGs trended with no acute findings. Emergency department physician contacted poison control and patient was placed under Dutta act. She had a mild hypokalemia which was replaced. She was cleared medically and discharged from clinical decision unit, now admitted to inpatient psychiatry. [facility] consulted to assist with ongoing medical management. Patient is seen and examined in her room reports she is feeling like "crap". She reports that she has been unable to get the correct thyroid medication and therefore she has been feeling nauseated with some abdominal cramping. She denies any vomiting, diarrhea, constipation, fevers, chills, cough, shortness of breath or chest pain. 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 She is requesting her home medication be started as she currently has this with her. She is also requesting to be discharged as her daughter who was driving from the state will be here and will only be visiting for several days. She denies any other acute concerns or complaint at the moment. [facility] - History History Provided By: Lithopone Charger / EMT - Medical History Medical History: Medical History (Last Reviewed 12/06/17 @ 18:27 by Ann-Marie Whitney) Anxiety Depression H/O thyroidectomy Kidney stone Thyroid cancer - Surgical History Surgical History: Surgical History (Last Updated 12/05/17 @ 17:31 by Ab Rivero MD) H/O right knee surgery History of partial hysterectomy - Family History Family History: Family History (Last Updated 12/05/17 @ 17:31 by Ab Rivero MD) Father Heart valve disease Other Family history of prostate cancer in father Multiple sclerosis - Substance Use Type Other Type: cigarettes Status: Active Route Used: Inhalation Frequency: 1 pack per day Medications and Allergies Active Medications: Active Medications Acetaminophen (Tylenol) 650 mg PO Q4H PRN PRN Reason: Pain 1-5 or Temp >101F Al Hydrox/Mg Hydrox/Simethicone (Mag-Al Plus Susp Liq) 30 ml PO Q6H PRN PRN Reason: DYSPEPSIA Al Hydroxide/Mg Hydroxide (Milk Of Magnesia Liq) 30 ml PO DAILY PRN PRN Reason: CONSTIPATION Alprazolam (Xanax) 2 mg PO Q8H PRN PRN Reason: ANXIETY Last Admin: 12/07/17 12:34 Dose: 2 mg Diphenhydramine HCl (Benadryl) 50 mg PO HS PRN PRN Reason: INSOMNIA Duloxetine HCl (Cymbalta) 60 mg PO DAILY [facility] Last Admin: 12/07/17 12:05 Dose: 60 mg Flumazenil (Romazecon Inj) 0.2 mg IV.PUSH Q1M PRN PRN Reason: OVERSEDATION Levothyroxine Sodium (Synthroid) 100 mcg PO DAILY@06 [facility] Liothyronine Sodium (Cytomel) 10 mcg PO DAILY@06 [facility] Last Admin: 12/07/17 08:38 Dose: 10 mcg Lorazepam (Ativan) 1 mg PO Q4H PRN PRN Reason: for CIWA 8-10 Lorazepam (Ativan) 2 mg PO Q2H PRN PRN Reason: for CIWA 11-14 Lorazepam (Ativan Inj) 2 mg IV.PUSH Q2H PRN PRN Reason: for CIWA 11-14 Lorazepam (Ativan Inj) 2 mg IV.PUSH Q1H PRN PRN Reason: for CIWA 15-20 Lorazepam (Ativan Inj) 2 mg IV.PUSH Q15M PRN PRN Reason: for CIWA > 20 Lorazepam (Ativan Inj) 1 mg IV.PUSH Q4H PRN PRN Reason: for CIWA 8-10 Nicotine (Habitrol 21 Mg Patch.24 Hr) 1 patch T-DERMAL DAILY PRN PRN Reason: NICOTINE CRAVING Patch Removal (Remove Old Patch) 1 each T-DERMAL HS [facility] Last Admin: 12/06/17 21:20 Dose: Not Given Trazodone HCl (Desyrel) 50 mg PO HS PRN PRN Reason: INSOMNIA Allergies Allergy/AdvReac Type Severity Reaction Status Date / Time Sulfa (Sulfonamide Allergy Hallucinati Verified 12/05/17 14:42 Antibiotics) ons Home Medications Medication Instructions Recorded Confirmed Type jarxvmr-glqnqmkzubbjo-psnslrah 1 tab PO Q4-6H PRN 12/05/17 12/05/17 History [Excedrin Migraine] duloxetine 60 mg PO DAILY 12/05/17 12/05/17 History levothyroxine [Tirosint] 100 mcg PO DAILY 12/06/17 12/06/17 History liothyronine [Cytomel] 10 mcg PO DAILY 12/06/17 12/06/17 History Physical Exam Vital signs: Vital Signs 12/06/17 19:18 12/07/17 05:51 Temperature 36.7 C 36.8 C Pulse Rate 68 76 Respiratory Rate 16 21 Blood Pressure 133/76 144/71 H Pulse Oximetry 98 95 Intake & Output 12/06/17 12/07/17 12/07/17 18:59 06:59 18:59 Weight 73.7 kg Other: Weight On Admission 73.7 kg Assessment and Plan - Plan 47-year-old female with a history of anxiety, depression, thyroid cancer status post thyroidectomy, who presents with what she reports as an unintentional drug overdose. Cleared medically and now admitted to inpatient psychiatry, [facility] consulted to assist with ongoing medical management. Overdose: with hx of Anxiety/Depression. Unclear motivation of overdose, patient took handful of pills to "go to sleep" in a "moment of weakness". -Trended EKGs with no acute findings. - Cleared medically and now admitted to inpatient psychiatry Thyroid cancer status post resection with Hypothyroid state -Patient follows up with endocrinology Dr. Vinson and Skyla MEJIA-Ranjit -TSH 0.067, free T4 1.12 - will continue current dose fo Liothyronine sodium 10mcg along with home Tirosint 100mcg -Patient will need to follow-up with her coal picker for further labs and evaluation, she verbalized understanding. Nausea/abdominal cramping -Patient attributes complaints to the fact that she has not been taking her Tirosint, as was restarted, personal medication to be verified by pharmacy. -As needed Zofran if needed DVT prophylaxisambulation Thank you for this consultation, will reevaluate abdominal discomfort tomorrow and if improved most likely sign off. Discussed Condition With: Patient, RN, pharmacist
[2017-12-07 16:38] LABS: Hemoglobin A1c 5.3 % (4.3-6.0)
[2017-12-07 18:01] VITALS: BP 130/73; PULSE 59; RESP 16; TEMP 97.6; O2SAT 98
[2017-12-07] MEDS: LEVOTHYROXINE 100 MCG PO SCH (18:03)
[2017-12-08] MEDS ORDERED: Levothyroxine 100 MCG Tablet PO SCH (06:00)
[2017-12-08] MEDS: Duloxetine 60 MG DR Capsule PO SCH (09:27)
[2017-12-08] MEDS: LEVOTHYROXINE 100 MCG PO SCH (09:28)
[2017-12-08] MEDS: Liothyronine 5 MCG Tablet PO SCH (09:31)
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
== END 2017-12-08 15:45 | disposition home or self-care (01) ==
LOC: H260 18:42
PROVIDERS: ADMIT Psychiatry & Neurology Psychiatry; ATTEND Psychiatry & Neurology Psychiatry